=== PATIENT | male | born 1985 | race African-American/Black ===

== ENCOUNTER 2017-02-16 22:39 | Emergency (ER) | payer OTHER ==
[~2017-02-16] VITALS: Ht 180.3 cm; Wt 77.1 kg
[~2017-02-16 22:39] MED LIST: ALBU-136 IH
[2017-02-16 22:45] VITALS: BP 132/75
--- NOTE | 2017-02-16 22:59 | NUR ---
PT TAKEN TO [facility] FROM [facility]
--- NOTE | 2017-02-16 23:05 | NUR ---
PT RETURN FROM XRAY TO LOBBY
--- NOTE | 2017-02-17 00:47 | NUR ---
PT TAKEN TO BED 8
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
--- NOTE | 2017-02-17 01:27 | NUR ---
Dr. Parry evaluating patient at bedside.
[2017-02-17 01:40] VITALS: BP 130/85
--- NOTE | 2017-02-17 01:40 | NUR ---
Patient discharged with v/s stable. Written and verbal after care instructions given and explained. Patient verbalized understanding. Ambulatory with steady gait. All questions addressed prior to discharge. Advised to follow up with PMD. PER ER MD PT OK TO GO BACK TO WORK.
== END 2017-02-17 01:40 | disposition home or self-care (01) ==
LOC: MED 22:39
DX: S60.221A Contusion of right hand, initial encounter (principal); J45.909 Unspecified asthma, uncomplicated; Z88.2 Allergy status to sulfonamides; X58.XXXA Exposure to other specified factors, initial encounter; Y93.89 Activity, other specified; Y92.89 Other specified places as the place of occurrence of the external cause; Y99.8 Other external cause status
CPT/HCPCS: 73130; 99284

== ENCOUNTER 2019-10-11 04:28 | Emergency (ER) | payer OTHER ==
[~2019-10-11] VITALS: Ht 180.3 cm; Wt 78.5 kg
[2019-10-11 04:30] VITALS: BP 121/76
--- NOTE | 2019-10-11 04:30 | NUR ---
TO BED # 08 AMBULATORY
--- NOTE | 2019-10-11 04:40 | NUR ---
33 Y/O M PRESENTS TO ED WITH C/O LT SHOUDLER/ANKLE PAIN WITH NUMBNSS X1 WEEK. DULL PAIN, NON-RADIATING. +CMS. PT DENIES INJURY OR TINGLILING IN EXTREMETY. NO OBVIOUS DEFORMITY NOTED. PT REPORTS DISCOMFORT DURING AMBULATION. BEDRAILX1 UP. WILL CONTINUE TO MONITOR.
--- NOTE | 2019-10-11 04:43 | NUR ---
Dr. You examining patient.
[2019-10-11] MEDS ORDERED: KETOROLAC 60 MG/2 ML VIAL IM ONE (04:45)
[2019-10-11 04:58] VITALS: BP 121/76
== END 2019-10-11 04:58 | disposition home or self-care (01) ==
LOC: MED 04:28
DX: M25.512 Pain in left shoulder (principal); J45.909 Unspecified asthma, uncomplicated; Z86.69 Personal history of other diseases of the nervous system and sense organs; Z79.51 Long term (current) use of inhaled steroids; Z88.2 Allergy status to sulfonamides
CPT/HCPCS: 96372; 99283; J1885

== ENCOUNTER 2019-11-21 19:11 | Emergency (ER) | payer OTHER ==
[~2019-11-21] VITALS: Ht 180.3 cm; Wt 73.9 kg
[2019-11-21 19:20] VITALS: BP 133/80
--- NOTE | 2019-11-21 19:22 | NUR ---
TO LOBBY A/W BED AMBULATORY
--- NOTE | 2019-11-21 19:32 | NUR ---
PT AMBULATED TO BED 2
--- NOTE | 2019-11-21 19:32 | NUR ---
Behzad angulo in [facility] - 11/21/19 at 1932 by SEB PT TAKEN TO BED 2
[2019-11-21] MEDS ORDERED: AZITHROMYCIN 250 MG TAB PO ONE (19:50)
[2019-11-21] MEDS ORDERED: cefTRIAXone 250 MG in LIDOCAINE MPF 1% 0.9 ML IM ONE (19:50)
[2019-11-21] MEDS ORDERED: LIDOCAINE MPF 1% 5 ML ONE (19:59)
[2019-11-21] MEDS ORDERED: cefTRIAXone 250 MG VIAL ONE (19:59)
--- NOTE | 2019-11-21 20:09 | NUR ---
33 Y/O MALE PRESENTS TO ED, C/O PENILE D/C THAT STARTED YESTERDAY. PT STATES SEEING ABNORMAL D/C WHEN URINATING. PT DENIES ANY PAIN URINATING. NO ABDOMINAL PAIN NOTED. PT STATES BEING SEXUALLY ACTIVE WITHOUT THE USE OF ANY CONTRACEPTIVE. PT DENIES ANY PAIN AROUND PENILE REGION. PT VSS. ERMD AWARE. WILL CONTINUE TO MONITOR.
[2019-11-21 20:14] VITALS: BP 133/80
--- NOTE | 2019-11-21 20:14 | NUR ---
PT DISCHARGED WITH PAPERWORK. EDUCATED PT REGARDING D/C DIAGNOSIS AND INSTRUCTIONS. PT VERBALIZED UNDERSTANDING OF TEACHING. TOLD PT TO FOLLOW UP WITH PCP AND WHEN TO RETURN TO ED. PROVIDED PT WITH [facility] FOR REFERRAL. PT STABLE CONDITION. ALL QUESTIONS ANSWERED.
[2019-11-21 20:24] LABS: APPEARANCE,URINE SL CLOUDY (CLEAR); BILIRUBIN,URINE NEGATIVE (NEGATIVE); BLOOD, URINE NEGATIVE (NEGATIVE); COLOR,URINE YELLOW (YELLOW); LEUKOCYTE ESTERASE ,URINE 1+ (NEGATIVE); NITRITE, URINE NEGATIVE (NEGATIVE); UGLUCOSE NEGATIVE (NEGATIVE)
[2019-11-21 20:31] LABS: HYALINE CASTS, URINE 0-10 /LPF (None Seen); RBC,URINE 0 /HPF (0-5); WBC,URINE 16-25 (MOD) /HPF (0-5)
[2019-11-24 06:07] LABS: CHLAMYDIA TRACHOMATIS AMP DNA Negative (Negative)
== END 2019-11-21 20:14 | disposition home or self-care (01) ==
LOC: MED 19:11
DX: R36.9 Urethral discharge, unspecified (principal); R30.0 Dysuria; J45.909 Unspecified asthma, uncomplicated; Z79.899 Other long term (current) drug therapy
CPT/HCPCS: 36415; 81001; 87086; 96372; 99283; J0696; J2001; 87491

== ENCOUNTER 2020-02-12 11:37 | Emergency (ER) | payer OTHER ==
[~2020-02-12] VITALS: Ht 180.3 cm; Wt 79.4 kg
[2020-02-12 11:45] VITALS: BP 132/85
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
[2020-02-12] MEDS ORDERED: IBUPROFEN 400 MG TAB PO ONE (12:30)
--- NOTE | 2020-02-12 12:46 | NUR ---
PATIENT IS BACK FROM XRAY VIA WHEELCHAIR ASSISTED BY GREASER AND OILER.
[2020-02-12 13:15] VITALS: BP 140/72
--- NOTE | 2020-02-12 13:15 | NUR ---
Patient discharged with v/s stable. Written and verbal after care instructions given and explained. Patient alert, oriented and verbalized understanding of instructions. Ambulatory with steady gait. All questions addressed prior to discharge. ID band removed. Patient advised to follow up with PMD. Rx of Naprosyn given. Xray result provided to patient. Patient educated on indication of medication including possible reaction and side effects. Opportunity to ask questions provided and answered.
== END 2020-02-12 13:15 | disposition home or self-care (01) ==
LOC: MED 11:37
DX: S29.012A Strain of muscle and tendon of back wall of thorax, initial encounter (principal); J45.909 Unspecified asthma, uncomplicated; Z79.899 Other long term (current) drug therapy; V53.5XXA Driver of pick-up truck or van injured in collision with car, pick-up truck or van in traffic accident, initial encounter; Y93.89 Activity, other specified; Y92.89 Other specified places as the place of occurrence of the external cause; Y99.8 Other external cause status
CPT/HCPCS: 72072; 99283

== ENCOUNTER 2020-03-26 06:00 | Emergency (ER) | payer OTHER ==
[~2020-03-26] VITALS: Ht 180.3 cm; Wt 80.7 kg
[2020-03-26 06:11] VITALS: BP 134/70
--- NOTE | 2020-03-26 06:15 | NUR ---
PT TAKEN TO BED 4
--- NOTE | 2020-03-26 06:16 | NUR ---
Dr. Martinez examining patient.
[2020-03-26] MEDS ORDERED: KETOROLAC 30 MG/ML VIAL IM ONE (06:25)
[2020-03-26] MEDS ORDERED: LIDOCAINE 5% 1 EA PATCH TP SCH (06:25)
[2020-03-26] MEDS ORDERED: CYCLOBENZAPRINE 10 MG TAB PO ONE ×2 (06:25→06:40)
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
[2020-03-26 06:47] LABS: BASOPHILS % (AUTO) 0.7 % (0.0-2.0); EOSINOPHILS # (AUTO) 0.1 K/uL (0-0.4); EOSINOPHILS % (AUTO) 2.2 % (0.0-4.0); HEMATOCRIT 39.6 % (36-52); HEMOGLOBIN 12.7 g/dL (12.0-18.0); LYMPHOCYTES # (AUTO) 2.2 K/uL (2.0-11.5); LYMPHOCYTES % (AUTO) 50.1 % (20.5-51.1); MEAN CORPUSCULAR HEMOGLOBIN 28 pg (27-31); MEAN CORPUSCULAR HGB CONC 32 g/dL (33-37); MEAN CORPUSCULAR VOLUME 87.2 fL (80-94); MONOCYTES # (AUTO) 0.4 K/uL (0.8-1.0); MONOCYTES % (AUTO) 9.4 % (1.7-9.3); NEUTROPHILS # (AUTO) 1.6 K/uL (1.8-7.7); NEUTROPHILS % (AUTO) 37.6 % (42.2-75.2); PLATELET COUNT (AUTO) 165 K/uL (140-450); RED BLOOD CELL COUNT(AUTO) 4.54 MIL/uL (4.20-6.10); RED CELL DISTRIBUTION WIDTH 14.1 % (11.6-13.7); WHITE BLOOD COUNT (AUTO) 4.4 K/uL (4.8-10.8)
--- NOTE | 2020-03-26 06:55 | NUR ---
PT TAKEN TO CT
--- NOTE | 2020-03-26 07:00 | NUR ---
PT RETURN FROM CT
--- NOTE | 2020-03-26 07:05 | NUR ---
LIDODERM 5% PATCH PLACED ON LEFT LOWER BACK. PT INSTRUCTED ON WHEN AND HOW TO REMOVE PATCH, AND GIVEN PACKAGING WITH INSTRUCTIONS ON HOW PROPERLY DISCARD PATCH.
[2020-03-26 07:13] LABS: ALBUMIN 3.6 g/dL (3.4-5.0); ANION GAP 10.7 (8-16); ASPARTATE AMINOTRANSFERASE 19 U/L (15-37); CARBON DIOXIDE 29.9 mmol/L (21-32); CHLORIDE 106 mmol/L (98-107); CREATININE 1.2 mg/dL (0.6-1.3); GFR ARICAN-AMERICAN 88 mL/min (>90); GLUCOSE 95 mg/dL (74-106); POTASSIUM 4.6 mmol/L (3.5-5.1); SODIUM SERUM 142 mmol/L (136-145); TOTAL BILIRUBIN 0.3 mg/dL (0.0-1.0); UREA NITROGEN, BLOOD 16 mg/dL (7-18)
--- NOTE | 2020-03-26 07:16 | NUR ---
OBTAINED REPORT FROM BARRY SPENCE FOR CONTINUITY OF CARE
--- NOTE | 2020-03-26 07:16 | NUR ---
PT RESTING IN BED, SIDE RAIL X1
--- NOTE | 2020-03-26 08:32 | NUR ---
PT RESTING IN BED, SIDE RAIL X1
--- NOTE | 2020-03-26 08:49 | NUR ---
Dr. Puente is re-evaluating the patient at bedside.
[2020-03-26 09:01] VITALS: BP 130/68
--- NOTE | 2020-03-26 09:01 | NUR ---
Patient discharged with v/s stable. Written and verbal after care instructions given and explained. Patient alert, oriented and verbalized understanding of instructions. Ambulatory with steady gait. All questions addressed prior to discharge. ID band removed. Patient advised to follow up with PMD. Rx of MOTRIN,CYCLOBENZAPRINE given. Patient educated on indication of medication including possible reaction and side effects. Opportunity to ask questions provided and answered.
== END 2020-03-26 09:01 | disposition home or self-care (01) ==
LOC: MED 06:00
DX: M54.6 Pain in thoracic spine (principal); J45.909 Unspecified asthma, uncomplicated; Z88.2 Allergy status to sulfonamides; Z79.899 Other long term (current) drug therapy
CPT/HCPCS: 36415; 72128; 80053; 82550; 82553; 85025; 96372; 99284; J1885

== ENCOUNTER 2020-07-13 13:52 | Emergency (ER) | payer OTHER ==
[~2020-07-13] VITALS: Ht 180.3 cm; Wt 79.8 kg
[2020-07-13 14:11] VITALS: BP 146/62
--- NOTE | 2020-07-13 14:15 | NUR ---
PT AMBULATED TO ER BED 02
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
--- NOTE | 2020-07-13 14:40 | NUR ---
Patient discharged with v/s stable. Written and verbal after care instructions about sciatica given and explained. Patient alert, oriented and verbalized understanding of instructions. Ambulatory with steady gait. All questions addressed prior to discharge. ID band removed. Patient advised to follow up with PMD. Rx of tramadol given. Patient educated on indication of medication including possible reaction and side effects. Opportunity to ask questions provided and answered.
[2020-07-13 14:41] VITALS: BP 146/62
== END 2020-07-13 14:40 | disposition home or self-care (01) ==
LOC: MED 13:52
DX: M54.42 Lumbago with sciatica, left side (principal); G89.29 Other chronic pain; J45.909 Unspecified asthma, uncomplicated; Z79.899 Other long term (current) drug therapy; Z88.2 Allergy status to sulfonamides
CPT/HCPCS: 99283